=== PATIENT | male | born 1975 | race Caucasian/White ===

== ENCOUNTER 2023-01-26 13:21 | Emergency (ER) | payer MEDICAID, MEDICARE ==
[2023-01-26 14:33] LABS: BASOPHILS ABSOLUTE AUTO 0.01 K/uL (0.00-0.20); BASOPHILS PERCENT AUTO 0.1 % (0.0-2.0); EOSINOPHILS ABSOLUTE AUTO 0.13 K/uL (0.00-0.50); EOSINOPHILS PERCENT AUTO 0.9 % (0.0-5.0); HEMATOCRIT 43.4 % (39.0-49.0); HEMOGLOBIN 14.8 g/dL (13.1-16.8); LYMPHOCYTES ABSOLUTE AUTO 1.86 K/uL (0.50-3.50); LYMPHOCYTES PERCENT AUTO 12.7 % (10.0-50.0); MEAN CORPUSCULAR HEMOGLOBIN 31.3 pg (28.2-33.3); MEAN CORPUSCULAR HGB CONC 34.1 g/dL (31.7-36.0); MEAN CORPUSCULAR VOLUME 91.8 fL (84.0-98.0); MONOCYTES ABSOLUTE AUTO 1.26 K/uL (0.00-1.00); MONOCYTES PERCENT AUTO 8.6 % (2.0-14.0); NEUTROPHILS ABSOLUTE AUTO 11.36 K/uL (1.40-7.00); NEUTROPHILS PERCENT AUTO 77.7 % (45.0-80.0); PLATELET COUNT,PLT 197 K/uL (150-350); RED BLOOD CELL COUNT 4.73 M/uL (4.33-5.41); WHITE BLOOD CELL COUNT,WBC 14.6 K/uL (4.0-10.2)
[2023-01-26 14:50] LABS: PROTHROMBIN TIME 9.6 SEC (9.0-11.1)
[2023-01-26 14:54] LABS: ALANINE AMINOTRANSFERASE,ALT 19 U/L (12-78); ALBUMIN 3.7 g/dL (3.4-5.0); ALKALINE PHOSPHATASE 84 IU/L (46-116); ANION GAP 8.1 meq/L (7-15); ASPARTATE AMNIOTRANSFERASE,AST 11 U/L (15-37); BILIRUBIN TOTAL 0.4 mg/dL (0.2-1.0); BLOOD UREA NITROGEN,BUN 16 mg/dL (7-18); CALCIUM 8.9 mg/dL (8.5-10.1); CARBON DIOXIDE,CO2 27.9 mmol/L (21.0-32.0); CHLORIDE,CL 101 mmol/L (98-107); CREATININE 1.18 mg/dL (0.51-1.17); ESTIMATED GFR 77 mL/min (>=60); GLUCOSE RANDOM 101 mg/dL (70-99); POTASSIUM,K 3.8 mmol/L (3.5-5.1); PROTEIN TOTAL,TP 7.2 g/dL (6.4-8.2); SODIUM,NA 137 mmol/L (136-145)
== END 2023-01-26 15:30 | disposition home or self-care (01) ==
LOC: LL.ED 13:21
DX: M25.561 Pain in right knee (principal); Z88.0 Allergy status to penicillin; Z91.030 Bee allergy status
CPT/HCPCS: 36415; 80053; 85025; 85610; 85652; 86140; 99283

== ENCOUNTER 2023-11-01 13:05 | Day surgery (SDC) | payer MEDICARE, MEDICAID ==
[~2023-11-01 13:05] MED LIST: Midazolam 1 MG/ML 2 ML SDV ONE; Propofol 200 MG/20 ML SDV ONE
[2023-11-01] MEDS ORDERED: Sodium Chloride 0.9% 10 ML Syringe FLUSH PRN (13:15)
[2023-11-01] MEDS: Lactated Ringers 1,000 ML IV SCH (13:51)
[2023-11-01] MEDS ORDERED: Glycopyrrolate 0.2 MG/ML SDV IVPUSH ONE (14:38)
[2023-11-01] MEDS ORDERED: Propofol 200 MG/20 ML SDV IV ONE (14:38)
[2023-11-01] MEDS ORDERED: Lidocaine 2% 5 ML SDV ONE (14:38)
[2023-11-01] MEDS ORDERED: Propofol 200 MG/20 ML SDV ONE (15:08)
== END 2023-11-01 16:00 | disposition home or self-care (01) ==
LOC: LL.SDS 13:05
PROVIDERS: ATTEND Surgery
DX: Z12.11 Encounter for screening for malignant neoplasm of colon (principal); R19.5 Other fecal abnormalities; D12.5 Benign neoplasm of sigmoid colon; D12.3 Benign neoplasm of transverse colon; K22.70 Barrett's esophagus without dysplasia; E78.5 Hyperlipidemia, unspecified; K21.9 Gastro-esophageal reflux disease without esophagitis; Z87.891 Personal history of nicotine dependence
CPT/HCPCS: 00813; 43239; 45385; J1596; J2704; J7120; 88305; J3490

== ENCOUNTER 2023-12-10 12:46 | Emergency (ER) | payer MEDICARE, MEDICAID ==
[2023-12-10] MEDS ORDERED: Sodium Chloride 0.9% 10 ML Syringe FLUSH PRN (12:52)
[2023-12-10 13:01] LABS: BASOPHILS ABSOLUTE AUTO 0.02 K/uL (0.00-0.20); BASOPHILS PERCENT AUTO 0.3 % (0.0-2.0); EOSINOPHILS PERCENT AUTO 2.7 % (0.0-5.0); HEMATOCRIT 43.4 % (39.0-49.0); HEMOGLOBIN 15.3 g/dL (13.1-16.8); LYMPHOCYTES ABSOLUTE AUTO 3.44 K/uL (0.50-3.50); LYMPHOCYTES PERCENT AUTO 46.7 % (10.0-50.0); MEAN CORPUSCULAR HEMOGLOBIN 32.1 pg (28.2-33.3); MEAN CORPUSCULAR HGB CONC 35.3 g/dL (31.7-36.0); MONOCYTES ABSOLUTE AUTO 0.76 K/uL (0.00-1.00); MONOCYTES PERCENT AUTO 10.3 % (2.0-14.0); NEUTROPHILS ABSOLUTE AUTO 2.95 K/uL (1.40-7.00); PLATELET COUNT,PLT 203 K/uL (150-350); RED BLOOD CELL COUNT 4.77 M/uL (4.33-5.41); RED CELL DISTRIBUTION WIDTH 12.9 % (11.2-14.1); WHITE BLOOD CELL COUNT,WBC 7.4 K/uL (4.0-10.2)
[2023-12-10] MEDS: Iopamidol 755 Mg/ML 100 ML Bottle ONE (13:15)
[2023-12-10] MEDS: Iopamidol 755 Mg/ML 100 ML Bottle IVPUSH ONE (13:15)
[2023-12-10 13:16] LABS: ANION GAP 8.3 meq/L (7-15); BLOOD UREA NITROGEN,BUN 15 mg/dL (7-18); CALCIUM 9.1 mg/dL (8.5-10.1); CARBON DIOXIDE,CO2 26.7 mmol/L (21.0-32.0); CHLORIDE,CL 101 mmol/L (98-107); CREATININE 1.19 mg/dL (0.51-1.17); GLUCOSE RANDOM 91 mg/dL (70-99); SODIUM,NA 136 mmol/L (136-145)
[2023-12-10 13:17] LABS: ESTIMATED GFR 76 mL/min (>=60)
[2023-12-10] MEDS: Sodium Chloride 0.9% 1,000 ML IV ONE (13:37)
== END 2023-12-10 14:37 | disposition home or self-care (01) ==
LOC: LL.ED 12:46
DX: R91.8 Other nonspecific abnormal finding of lung field (principal); F17.210 Nicotine dependence, cigarettes, uncomplicated; Z79.899 Other long term (current) drug therapy; Z88.0 Allergy status to penicillin; Z91.030 Bee allergy status
CPT/HCPCS: 36415; 71275; 80048; 84484; 85025; 93005; 96360; 99284; J7030; Q9967; 70553; 93010; A9577